=== PATIENT | male | born 1940 | race Caucasian/White ===

== ENCOUNTER 2018-05-22 14:52 | Observation (INO) | payer OTHER ==
[2018-05-22] MEDS: NACHLORIDE 0.45% 1,000 ML IV SCH (16:26)
[2018-05-22 16:38] LABS: Absolute Monocytes 0.9 K/uL (0.1-1.3); Absolute Neutrophil 3.5 K/uL (1.8-8.0); Basophils % 0.8 % (0-1.3); Eosinophils % 4.7 % (0-4.4); Hematocrit 37.4 % (39.6-49.0); Lymphocytes % 29.7 % (15.3-44.8); MCH 36.3 pg (27.0-35.0); MPV 6.2 fL (7.6-11.3); Monocytes % 13.1 % (3.3-12.3); RBC Red Blood Cell Count 3.52 M/uL (4.33-5.43)
[2018-05-22 16:43] VITALS: BMI 17.8
[2018-05-22 16:49] LABS: ALT/SGPT 26 U/L (12-78); AST/SGOT 25 U/L (15-37); Albumin 3.8 g/dL (3.4-5.0); Alkaline Phosphatase 119 U/L (45-117); BUN Blood Urea Nitrogen 23 mg/dL (7-18); Bicarbonate 30 mmol/L (21-32); Bilirubin Total 0.3 mg/dL (0.2-1.0); Glucose Level 91 mg/dL (74-106); Potassium 4.4 mmol/L (3.5-5.1); Protein, Total 7.9 g/dL (6.4-8.2); Sodium Level 141 mmol/L (136-145)
--- NOTE | 2018-05-22 18:45 | RAD REPORT ---
EXAM DESCRIPTION: CT - Abdomen Pelvis Wo Contrast - 05/22/2018 6:27 pm CLINICAL HISTORY: Abdominal pain, complaint of constipation, bloating and pressure, prior appendecto my, prior5 spinal surgery COMPARISON: None. TECHNIQUE: Axial [address] imaging of the abdomen and pelvis was performed without IV contrast. No IV contrast was given because of allergy, abnormal renal function, patient refusal or physician re quest. Oral contrast was given. All CT scans are performed using dose optimization technique as appropriate and may include automated exposure control or mA/KV adjustment according to patient size. FINDINGS: Hyperexpanded and fibrotic changes are present at the lung bases. Pericardial effusion is seen along the anterior heart border. No pleural effusion. The liver, spleen and pancreas show no suspicious findings on non-contrast imaging. Gallbladder and b iliary tree are also without suspicious finding. No hydronephrosis or suspicious renal mass. Punctate nonobstructing calculus present in the central l eft kidney. No urinary bladder abnormality identifiable. Prostate gland is small or absent. No surgic al clips are seen. Calcifications are present. No significant adrenal finding. Isodense renal masses and pyelonephritis cannot be excluded in the absence of IV contrast. Large amount of food and contrast are mixed in the stomach. No gastric wall thickening or mass. Peris talsis artifacts limit assessment of the antrum and pylorus. No dilated small bowel loops. Stool and contrast are seen throughout the colon. The colon is filled but not dilated. No appendicitis. A prima ry colon mass is not seen. No free air, free fluid or inflammatory stranding. No hernia, mass or bulky lymphadenopathy. Postsurgical changes are noted near the lumbosacral junction. Prominent bony degenerative changes are present throughout the lumbar spine. No pathologic bone process seen. There are postsurgical defects in the right ilium near the SI joint. IMPRESSION: Large stool volume is present filling but not dilating the colon. An acute colon process is not seen. No free air obstruction or other surgically emergent finding. Pericardial effusion. Full assessment is limited is the absence of IV contrast.
[2018-05-22] MEDS ORDERED: MAGNESIUM CITRATE 300 ML BOT PO SCH (20:00)
[2018-05-22] MEDS ORDERED: FELBAMATE PO SCH (21:00)
[2018-05-22] MEDS ORDERED: CARBAMAZEPINE 200 MG TAB PO SCH (21:00)
[2018-05-22] MEDS ORDERED: FLURAZEPAM HCL 15 MG PO SCH (21:00)
[2018-05-23 02:07] VITALS: O2SAT 97
[2018-05-23] MEDS: NACHLORIDE 0.45% 1,000 ML IV SCH (04:19)
[2018-05-23 05:47] VITALS: BP 136/65; TEMP 97.4
--- NOTE | 2018-05-23 19:27 | HP ---
Date of Admission: 05/22/2018 Chief Complaint: Abdominal pain. History Of Present Illness: A 77-year-old male who was taken to the emergency room for abdominal manuel n in [place], where he had a CAT scan and blood work, when he was told to have severe constipation c ausing his abdominal pain. He tried enema, polyglycol, and various measures without any relief. The patient was brought to the office again. The patient had tenderness in the umbilical area. In view of continued symptoms and the lack of response to measures he already went through, the patient was admitted for observation to see whether there is any evidence of bowel obstruction or other reason fo r continued symptoms. Past Medical History: Positive for seizure disorder, COPD. Family History: Noncontributory. Personal History: The patient continues to smoke. Home Medicines: Please refer to the chart. Allergies: TETANUS, TOXOID, AND PENICILLIN. Review of Systems: No chest pain, fever, chills, rigors. Physical Examination: General: Revealed a 77-year-old male in moderate pain. HEENT: Negative. Neck: Supple. JVD negative. Chest: Bilateral wheezes. Heart: Regular. Abdomen: Tender in the umbilical area, moderate. No guarding or rebound tenderness. Extremities: No edema. Laboratory Data: White count, Chem profile normal. CT scan of the abdomen, large amount of stools i n the colon. Assessment: 1.Abdominal pain. 2.Obstipation. 3.Chronic obstructive pulmonary disease. 4.Seizure disorder. Plan: The patient received enema as well as magnesium citrate with which he had response. However, he did not want to wait and signed AMA and left. HOA/KUNAL Voice ID: [id number]
== END 2018-05-23 07:25 | disposition left against medical advice (07) ==
LOC: 2ND 15:12
PROVIDERS: ADMIT Internal Medicine; ATTEND Internal Medicine
DX: K59.00 Constipation, unspecified (principal); G40.909 Epilepsy, unspecified, not intractable, without status epilepticus; J44.9 Chronic obstructive pulmonary disease, unspecified; Z88.0 Allergy status to penicillin; Z88.7 Allergy status to serum and vaccine
CPT/HCPCS: 36415; 74176; 80053; 85025; G0378 ×2

== ENCOUNTER 2018-05-26 09:34 | Emergency (ER) | payer OTHER ==
[2018-05-26 10:26] LABS: Absolute Lymphocytes (CBC) 1.5 K/uL (0.7-4.9); Absolute Monocytes 1.2 K/uL (0.1-1.3); Absolute Neutrophil 4.1 K/uL (1.8-8.0); Basophils % 0.7 % (0-1.3); Eosinophils % 3.1 % (0-4.4); Lymphocytes % 20.8 % (15.3-44.8); MCH 36.4 pg (27.0-35.0); MCV 104.6 fL (80-100); MPV 6.7 fL (7.6-11.3); Monocytes % 17.2 % (3.3-12.3); RBC Red Blood Cell Count 3.44 M/uL (4.33-5.43)
[2018-05-26 10:34] LABS: BUN Blood Urea Nitrogen 22 mg/dL (7-18); Bicarbonate 29 mmol/L (21-32); Glucose Level 89 mg/dL (74-106); Potassium 4.9 mmol/L (3.5-5.1); Sodium Level 136 mmol/L (136-145)
[2018-05-26] MEDS ORDERED: NA CHLORIDE 0.9% 500 ML ONE (11:13)
--- NOTE | 2018-05-26 11:31 | RAD REPORT ---
EXAM DESCRIPTION: RAD - Abdomen 1 View (KUB) - 05/26/2018 11:23 am CLINICAL HISTORY: Abdominal pain, constipation COMPARISON: CT imaging May 22 FINDINGS: Air and stool are present throughout the colon. Stool volume is moderate and does appear t o be slightly diminished when compared to the May 22 CT study. Areas seen within nondilated sma ll bowel loops. No acute obstruction finding suspected. No free air or pneumatosis. No suspicious calcifications. Bones are osteopenic. Hip joint degenerative changes are present. No acute bony pelvic process. SI flaco int degenerative changes are present. Sacral ala are too obscured to allow assessment. Scoliosis rods are in place in the lower thoracic and upper lumbar spine. Patient has advanced disc and endplate de generative change L2-S1. IMPRESSION: Moderate stool volume appearing diminished compared to May 22 CT imaging. No obstruction, free air or emergent finding.
--- NOTE | 2018-05-26 14:17 | RAD REPORT ---
EXAM DESCRIPTION: MRI - Lumbar Spine Wo Con - 05/26/2018 1:57 pm CLINICAL HISTORY: Back pain, right lower extremity weakness, history of fall, history of remote back surgery 1979 COMPARISON: CT imaging May 22 TECHNIQUE: Sagittal T1-weighted, T2-weighted and T2-STIR weighted sequences were obtained. Axial T1 -weighted and heavily T2-weighted sequenceswere obtained through the lumbar disc levels. FINDINGS: T11 body shows approximately 20% wedge compression with concavity to the superior endplate . Within the central aspect of the body there is fracture change present. Fatty marrow signal pattern is present indicating chronicity of this finding. T12 body is normal in height with no acute marrow finding. Marrow degenerative changes are present throughout the lumbar vertebrae L1-S1. Hypointense T 1 and hyperintense T2 signal is present in the superior aspect of the L2 body abutting the endplate. Finding is most consistent with active marrow edema degenerative change. Pathologic or fracture relat ed edema is not suspected. A similar less extensive pattern is seen in the L3 and L4 bodies abutting the L3-4 disc space. No aggressive marrow pattern. No paraspinal soft tissue masses. Patient has prominent anterior disc bulge and endplate spurring changes L1-L4 with anterior disc bulging L4-5 and L5-S1. Tip of the conus is obscured due to metallic artifact at the L1 level from the scoliosis hardware jud t is in place. T12-L1 level: No significant findings. L1-2 level: Disc is thinned and desiccated with significant endplate degenerative change. There is a large protrusion of disc material across the central canal and to a lesser degree into each exit fora men. Large endplate spurs are present. Central spinal stenosis to 6 mm is present. Moderate left fora stepan encroachment is present. Right foramen is too obscured by metal artifact for assessment. Facet degenerative changes are present partially obscured by the metallic field artifact. L2-3 level: Disc is thinned and desiccated with significant endplate degenerative change. There is sl ight retrolisthesis of L2. Disc bulge and endplate spurring changes combine with ligamentous thickeni ng to cause central spinal stenosis to 7 mm. Prominent bilateral foraminal encroachment present from disc bulge and endplate spurring. L3-4 level: Disc is thinned and desiccated with prominent degenerative endplate changes. Slight retro listhesis of L3 present. Disc bulge, endplate spurring and posterior ligamentous thickening combine f or significant central spinal stenosis down to 6 mm. Advanced bony foraminal encroachment changes are present right greater than left. L4-5 level: Disc is desiccated with relatively mild loss in height. Disc bulge and endplate spurring changes are present. Ligamentous thickening is present along with left-sided facet hypertrophy. Moder ate right foraminal stenosis is present. There is mass effect on the posterior left thecal sac from t he degenerative change. Central canal stenosis to 09-2009 mm is present. Significant left foraminal s tenosis is present. L5-S1 level: Disc is thinned and desiccated. Disc bulge and endplate spurring changes are present. Ca nal is 10 mm in the midline. Prominent bilateral foraminal encroachment from disc bulge and bony hype rtrophy. IMPRESSION: Advanced degenerative change involves the entire lumbar spine. Significant central spina l stenosis is present at L1-2, L2-3 and L3-4. Borderline or mild central spinal stenosis present at L4-5 and L5-S1. Multilevel significant foraminal stenosis changes from disc bulge and uncovertebral joint hypertrophy . Findings are detailed at each level in the body of the report. Advanced degenerative change throughout the lumbar vertebrae with active marrow degenerative change a butting the disc levels at L1-2 and at all 3-4. Old fracture changes of the T11 body.
--- NOTE | 2018-05-26 14:32 | EDPHYS ---
Physician Documentation [facility] Name: Gary De Leon Age: 77 yrs Sex: Male : 1940 Arrival Date: 05/26/2018 Time: 09:35 Bed 17 Private MD: ED Physician Vern Vera HPI: 05/26 10:23 This 77 yrs old Male presents to ER via EMS with complaints of Back Pain, R rn leg weakness. 10:23 The patient presents with pain that is acute, with no known mechanism of injury. The rn symptoms are located in the low back. Onset: The symptoms/episode began/occurred yesterday. The pain radiates to the right leg. Associated signs and symptoms: Pertinent positives: constipation, weakness, Pertinent negatives: hematuria, incontinence, urinary retention. Modifying factors: The patient symptoms are alleviated by nothing, the patient symptoms are aggravated by nothing. The patient has not experienced similar symptoms in the past. The patient has been recently seen by a physician:. REports just admitted to hospital for constipation, told "was backed up", but no blockage, reports admitted and got barium and 9 enemas, got only liquid stool out, no vomiting, states abd not as bloated but now having lower back pain and right leg weakness, noticed it today when going to coffee shop, feels like right leg is giving out. No trauma. States back pain mild. . Historical: - Allergies: 09:42 Tetanus Vaccines and Toxoid; 09:42 PENICILLINS; - Home Meds: 09:42 felbamate oral oral [Active]; Carbamazepine Oral [Active]; Flurazepam Oral [Active]; - PMHx: 09:42 Seizures; polio; Emphysema; - PSHx: 09:42 back surgery; hj - Immunization history:: Adult Immunizations up to date. - Social history:: Smoking status: Patient uses tobacco products, smokes two packs cigarettes per day. Patient/guardian denies using alcohol. - Ebola Screening: : Patient negative for fever greater than or equal to 101.5 degrees Fahrenheit, and additional compatible Ebola Virus Disease symptoms Patient denies exposure to infectious person Patient denies travel to an Ebola-affected area in the 21 days before illness onset. - Family history:: not pertinent. - Hospitalizations: : The patient was recently seen at [facility]. ROS: 10:23 Constitutional: Negative for fever, chills, and weight loss, Eyes: Negative for injury, rn pain, redness, and discharge, Cardiovascular: Negative for chest pain, palpitations, and edema, Respiratory: Negative for shortness of breath, cough, wheezing, and pleuritic chest pain, Abdomen/GI: + constipation Back: + low back pain MS/Extremity: Negative for injury and deformity, Skin: Negative for injury, rash, and discoloration, Neuro: Negative for headache, numbness, tingling, and seizure. Exam: 10:23 Constitutional: This is a well developed, well nourished patient who is awake, alert, rn and in no acute distress. Sitting in bed with legs crossed, appears comfortable Head/Face: Normocephalic, atraumatic. Eyes: Pupils equal round and reactive to light, extra-ocular motions intact. Lids and lashes normal. Conjunctiva and sclera are non-icteric and not injected. Cornea within normal limits. Periorbital areas with no swelling, redness, or edema. ENT: dry MM Cardiovascular: Regular rate and rhythm with a normal S1 and S2. No gallops, murmurs, or rubs. Normal PMI, no JVD. No pulse deficits. Respiratory: Lungs have equal breath sounds bilaterally, clear to auscultation and percussion. No rales, rhonchi or wheezes noted. No increased work of breathing, no retractions or nasal flaring. Abdomen/GI: Soft, non-tender, with normal bowel sounds. No distension or tympany. No guarding or rebound. No evidence of tenderness throughout. Back: No spinal tenderness. No costovertebral tenderness. Full range of motion. MS/ Extremity: Pulses equal, no cyanosis. Neurovascular intact. Neuro: Awake and alert, GCS 15, oriented to person, place, time, and situation. Cranial nerves II-XII grossly intact. Motor strength 5/5 in all extremities. Sensory grossly intact. Vital Signs: 09:44 BP 129 / 61; Pulse 66; Resp 18; Temp 98.3(O); Pulse Ox 99% on R/A; Weight 48.53 kg; hj Height 5 ft. 9 in. (175.26 cm); Pain 4/10; 11:37 BP 135 / 57; Pulse 64; Resp 18; Pulse Ox 99% on R/A; hj 12:16 BP 115 / 78; Pulse 65; Resp 18; Pulse Ox 100% on R/A; hj 12:50 BP 135 / 65; Pulse 68; Resp 18; Pulse Ox 100% on R/A; hj 14:18 BP 116 / 79; Pulse 69; Resp 18; Pulse Ox 100% on R/A; hj 09:44 Body Mass Index 15.80 (48.53 kg, 175.26 cm) MDM: 09:46 Patient medically screened. rn 14:28 Differential diagnosis: chronic back pain, Fatigue Myeloma Neoplasm Osteoarthritis rn ruptured disc, spinal injury, sprain, vertebral fracture. Data reviewed: vital signs, nurses notes, lab test result(s), radiologic studies, MRI, and as a result, I will discharge patient. Counseling: I had a detailed discussion with the patient and/or guardian regarding: the historical points, exam findings, and any diagnostic results supporting the discharge/admit diagnosis, lab results, radiology results, the need for outpatient follow up, to return to the emergency department if symptoms worsen or persist or if there are any questions or concerns that arise at home. Response to treatment: the patient's symptoms have mildly improved after treatment, and as a result, I will discharge patient. Special discussion: I discussed with the patient/guardian in detail that at this point there is no indication for admission to the hospital. It is understood, however, that if the symptoms persist or worsen the patient needs to return immediately for re-evaluation. Based on the history and exam findings, there is no indication for further emergent testing or inpatient evaluation. I discussed with the patient/guardian the need to see the back specialist for further evaluation of the symptoms. I discussed with the patient/guardian the need to see the primary care provider for further evaluation of the symptoms. ED course: Pt improved mildly, symptoms still intermittent, MRI shows multi-level disease with spinal canal stenosis, nothing acute, will dc home with steroids, muscle relaxer, and spine f/u, nothing to indicate need for emergent surgery, would need if symptoms worsen or become constant. . 05/26 10: Order name: CBC with Diff; Complete Time: 11:00 rn 05/26 10: Order name: Basic Metabolic Panel; Complete Time: 11:00 rn 05/26 10: Order name: IV Start; Complete Time: : rn 05/26 10:03 Order name: MRI Lumbar Spine wo Con; Complete Time: 14:20 rn 05/26 10:03 Order name: XRCACHORRO SULTANA; Complete Time: 12:21 rn Administered Medications: 11:00 Drug: NS 0.9% 500 ml Route: IV; Rate: bolus; Site: right antecubital; hj 12:15 Follow up: IV Status: Completed infusion; IV Intake: 500ml hj Disposition: 05/26/18 14:32 Discharged to Home. Impression: Spinal stenosis, lumbar region, Radiculopathy, lumbar region, Constipation. - Condition is Stable. - Discharge Instructions: Constipation, Adult, Lumbosacral Radiculopathy. - Prescriptions for Medrol (Darrick) 4 mg Oral Tablets, Dose Pack - take 1 tablet by ORAL route as directed - follow package instructions; 1 packet. Cyclobenzaprine 5 mg Oral Tablet - take 1 tablet by ORAL route 3 times per day As needed; 15 tablet. - Medication Reconciliation Form, Thank You Letter, Antibiotic Education, Prescription Opioid Use form. - Follow up: Private Physician; When: As needed; Reason: Recheck today's complaints, Re-evaluation by your physician. - Problem is new. - Symptoms have improved. Signatures: Dispatcher [employer] EDMS Vern Vera MD MD rn Joaquin, Henry, RN RN hj Corrections: (The following items were deleted from the chart) 14:32 14:32 05/26/2018 14:32 Discharged to Home. Impression: Spinal stenosis, lumbar region; rn Radiculopathy, lumbar region. Condition is Stable. Forms are Medication Reconciliation Form, Thank You Letter, Antibiotic Education, Prescription Opioid Use. Follow up: Private Physician; When: As needed; Reason: Recheck today's complaints, Re-evaluation by your physician. Problem is new. Symptoms have improved. rn 14:44 14:32 05/26/2018 14:32 Discharged to Home. Impression: Spinal stenosis, lumbar region; hj Radiculopathy, lumbar region; Constipation. Condition is Stable. Forms are Medication Reconciliation Form, Thank You Letter, Antibiotic Education, Prescription Opioid Use. Follow up: Private Physician; When: As needed; Reason: Recheck today's complaints, Re-evaluation by your physician. Problem is new. Symptoms have improved. rn
--- NOTE | 2018-05-26 14:32 | ER ---
Nurse's Notes [facility] Name: Gary De Leon Age: 77 yrs Sex: Male : 1940 Arrival Date: 05/26/2018 Time: 09:35 Bed 17 Private MD: Diagnosis: Spinal stenosis, lumbar region;Radiculopathy, lumbar region;Constipation Presentation: 05/26 09:36 Presenting complaint: EMS states: pt called EMS from parking lot of Dr. Villa, PCP, hj complaining of R leg weakness and back pain; hx of polio, seizure and empysema; BP- 120/80; O2 sat- 98%; afebrile;. Transition of care: patient was received from another setting of care (ambulatory primary care physician practice). Onset of symptoms was May 26, 2018. Risk Assessment: Do you want to hurt yourself or someone else? Patient reports no desire to harm self or others. Initial Sepsis Screen: Does the patient meet any 2 criteria? No. Patient's initial sepsis screen is negative. Does the patient have a suspected source of infection? No. Patient's initial sepsis screen is negative. Care prior to arrival: None. 09:36 Method Of Arrival: EMS: [facility] 09:36 Acuity: MAGDALENO 3 hj Triage Assessment: 09:42 General: Appears in no apparent distress. uncomfortable, Behavior is calm, cooperative, hj appropriate for age. Pain: Complains of pain in back and right leg. EENT: No signs and/or symptoms were reported regarding the EENT system. Neuro: Level of Consciousness is awake, alert, obeys commands, Oriented to person, place, time, situation. Cardiovascular: Capillary refill < 3 seconds Patient's skin is warm and dry. Respiratory: Airway is patent Respiratory effort is even, unlabored, Respiratory pattern is regular, symmetrical. GI: No signs and/or symptoms were reported involving the gastrointestinal system. : No signs and/or symptoms were reported regarding the genitourinary system. Derm: No signs and/or symptoms reported regarding the dermatologic system. Musculoskeletal: Range of motion: intact in all extremities, Reports weakness in right leg pain in back. Historical: - Allergies: 09:42 Tetanus Vaccines and Toxoid; hj 09:42 PENICILLINS; hj - Home Meds: 09:42 felbamate oral oral [Active]; Carbamazepine Oral [Active]; Flurazepam Oral [Active]; hj - PMHx: 09:42 Seizures; polio; Emphysema; hj - PSHx: 09:42 back surgery; hj - Immunization history:: Adult Immunizations up to date. - Social history:: Smoking status: Patient uses tobacco products, smokes two packs cigarettes per day. Patient/guardian denies using alcohol. - Ebola Screening: : Patient negative for fever greater than or equal to 101.5 degrees Fahrenheit, and additional compatible Ebola Virus Disease symptoms Patient denies exposure to infectious person Patient denies travel to an Ebola-affected area in the 21 days before illness onset. - Family history:: not pertinent. - Hospitalizations: : The patient was recently seen at [facility]. Screenin:44 Abuse screen: Denies threats or abuse. Denies injuries from another. Nutritional hj screening: No deficits noted. Tuberculosis screening: No symptoms or risk factors identified. Fall Risk Secondary diagnosis (15 points) polio. Assessment: 09:45 Reassessment: see triage for assessment; states "i was a day before yesterday for colon hj blockage". 10:45 Reassessment: Patient and/or family updated on plan of care and expected duration. Pain hj level reassessed. Patient is alert, oriented x 3, equal unlabored respirations, skin warm/dry/pink. wheeled to XRAY;. 11:36 Reassessment: Patient and/or family updated on plan of care and expected duration. Pain hj level reassessed. Patient is alert, oriented x 3, equal unlabored respirations, skin warm/dry/pink. wheeld back from XRAY;. 12:16 Reassessment: Patient and/or family updated on plan of care and expected duration. Pain hj level reassessed. Patient is alert, oriented x 3, equal unlabored respirations, skin warm/dry/pink. awaiting MRI;. 12:50 Reassessment: Patient and/or family updated on plan of care and expected duration. Pain hj level reassessed. Patient is alert, oriented x 3, equal unlabored respirations, skin warm/dry/pink. awaiting results;. 13:09 Reassessment: Patient and/or family updated on plan of care and expected duration. Pain hj level reassessed. Patient is alert, oriented x 3, equal unlabored respirations, skin warm/dry/pink. called MRI; states, pt will be picked up for test in 20 mins;. 13:28 Reassessment: Patient and/or family updated on plan of care and expected duration. Pain hj level reassessed. Patient is alert, oriented x 3, equal unlabored respirations, skin warm/dry/pink. wheeled to MRI;. 14:10 Reassessment: back in room;. hj Vital Signs: 09:44 BP 129 / 61; Pulse 66; Resp 18; Temp 98.3(O); Pulse Ox 99% on R/A; Weight 48.53 kg; hj Height 5 ft. 9 in. (175.26 cm); Pain 4/10; 11:37 BP 135 / 57; Pulse 64; Resp 18; Pulse Ox 99% on R/A; hj 12:16 BP 115 / 78; Pulse 65; Resp 18; Pulse Ox 100% on R/A; hj 12:50 BP 135 / 65; Pulse 68; Resp 18; Pulse Ox 100% on R/A; hj 14:18 BP 116 / 79; Pulse 69; Resp 18; Pulse Ox 100% on R/A; hj 09:44 Body Mass Index 15.80 (48.53 kg, 175.26 cm) hj ED Course: 09:35 Patient arrived in ED. hj 09:38 Triage completed. hj 09:44 Arm band placed on right wrist. hj 09:45 Patient has correct armband on for positive identification. Bed in low position. Call hj light in reach. Side rails up X2. 09:46 Vern Vera MD is Attending Physician. rn 10:05 Jam Gutierrez RN is Primary Nurse. hj 10:14 Initial lab(s) drawn, by wy, sent to lab. Inserted saline lock: 22 gauge in right dh3 antecubital area, using aseptic technique. Blood collected. 11:23 X-ray completed. Patient tolerated procedure well. Patient moved back from radiology. mh1 11:23 XRAY KUB In Process Unspecified. EDMS 13:34 Patient moved to MRI via wheelchair. em2 13:41 MRI Lumbar Spine wo Con In Process Unspecified. EDMS 13:56 MRI completed. Patient tolerated well. Patient moved back from MRI. em2 14:43 No provider procedures requiring assistance completed. IV discontinued, intact, hj bleeding controlled, No redness/swelling at site. Pressure dressing applied. Administered Medications: 11:00 Drug: NS 0.9% 500 ml Route: IV; Rate: bolus; Site: right antecubital; 12:15 Follow up: IV Status: Completed infusion; IV Intake: 500ml hj Intake: 12:15 IV: 500ml; Total: 500ml. Outcome: 14:32 Discharge ordered by . rn 14:43 Discharged to home via wheelchair. 14:43 Condition: stable 14:43 Instructed on discharge instructions, follow up and referral plans. medication usage, Demonstrated understanding of instructions, follow-up care, medications, Prescriptions given X 2. 14:44 Patient left the ED. Signatures: Dispatcher [employer] EDRuma Rodríguez 1 Vern Vera MD MD rn Montes, Enrique [facility] Jam Gutierrez RN RN hj Herrera, Chela 3
[2018-05-26 14:51] VITALS: TEMP 98.3
[2018-05-26 14:53] VITALS: O2SAT 100
[2018-05-26 14:55] VITALS: BP 116/79
== END 2018-05-26 14:44 | disposition home or self-care (01) ==
LOC: ER 09:34
DX: M48.061 Spinal stenosis, lumbar region without neurogenic claudication (principal); M54.16 Radiculopathy, lumbar region; K59.00 Constipation, unspecified; F17.210 Nicotine dependence, cigarettes, uncomplicated; Z88.0 Allergy status to penicillin; Z88.7 Allergy status to serum and vaccine
CPT/HCPCS: 36415; 72148; 74018; 80048; 85025; 96360; 99284

== ENCOUNTER 2019-01-02 20:32 | Inpatient (IN) | payer OTHER ==
--- OUTSIDE RECORDS SUMMARY | 2019-01-02 20:35 | XMS REPORT ---
:1940 [facility] Address [address] [place] [address] Dr. Mcdonald. [address] [place] [id number] Care Team Providers Name Role Phone Unavailable Unavailable Unavailable Problems This patient has no known problems. Allergies, Adverse Reactions, Alerts This patient has no known allergies or adverse reactions. Medications This patient has no known medications.
[2019-01-02] MEDS ORDERED: NA CHLORIDE 0.9% 1,000 ML ONE (21:28)
[2019-01-02 21:58] LABS: Absolute Lymphocytes (CBC) 1.4 K/uL (0.7-4.9); Absolute Monocytes 1.7 K/uL (0.1-1.3); Absolute Neutrophil 7.5 K/uL (1.8-8.0); Basophils % 0.6 % (0-1.3); Eosinophils % 2.8 % (0-4.4); Hematocrit 28.5 % (39.6-49.0); Lymphocytes % 13.2 % (15.3-44.8); MPV 7.4 fL (7.6-11.3); Monocytes % 15.2 % (3.3-12.3); RBC Red Blood Cell Count 2.85 M/uL (4.33-5.43)
[2019-01-02 22:37] LABS: ALT/SGPT 21 U/L (12-78); AST/SGOT 23 U/L (15-37); Albumin 3.2 g/dL (3.4-5.0); Alkaline Phosphatase 107 U/L (45-117); BUN Blood Urea Nitrogen 28 mg/dL (7-18); Bicarbonate 25 mmol/L (21-32); Bilirubin Direct 0.1 mg/dL (0-0.2); Bilirubin Total 0.4 mg/dL (0.2-1.0); Glucose Level 104 mg/dL (74-106); Magnesium 2.2 mg/dL (1.8-2.4); NT PRO-BNP 887 pg/mL (<450); Phosphorus 3.9 mg/dL (2.5-4.9); Potassium 4.5 mmol/L (3.5-5.1); Protein, Total 7.5 g/dL (6.4-8.2); Sodium Level 139 mmol/L (136-145); Troponin (Emerg Dept Use Only) < 0.02 ng/mL (0.0-0.045)
[2019-01-02 23:06] LABS: Blood Morphology Comment NOT SEEN (NOT SEEN); Platelet Estimate ADEQ
--- NOTE | 2019-01-02 23:13 | EDPHYS ---
Physician Documentation [facility] Name: Gary De Leon Age: 78 yrs Sex: Male : 1940 Arrival Date: 01/02/2019 Time: 20:34 Bed 27 Private MD: Troy Villa R ED Physician David Alvarez HPI: 01/02 21:33 This 78 yrs old Male presents to ER via Wheelchair with complaints of snw Nausea/Vomiting, Doesn't Feel Right. 21:33 The patient presents to the emergency department with nausea, that is mild. Onset: The snw symptoms/episode began/occurred suddenly, pt had a seizure yesterday for the first time in 25 years, went to [facility], labs were normal, chest x-ray not outside normal so pt was discharged. Family states last week pt was driving and ambulatory. Pt with severe weakness, slurred speech, disheveled. Pt appears as if bedridden for many years.. Possible causes: unknown. The symptoms are aggravated by nothing. Associated signs and symptoms: Pertinent positives: anorexia, fatigue, weakness, altered mental status. Severity of symptoms: At their worst the symptoms were moderate severe in the emergency department the symptoms are unchanged. The patient has not experienced similar symptoms in the past. The patient has been recently seen by a physician: TRICIA yesterday. Historical: - Allergies: 20:41 PENICILLINS; ed1 20:41 Tetanus Vaccines and Toxoid; ed1 - Home Meds: 20:41 Tegretol 200 mg Oral tab [Active]; ed1 - PMHx: 20:41 Emphysema; Polio; Seizures; ed1 - PSHx: 20:41 back surgery; ed1 - Immunization history:: Adult Immunizations unknown. - Social history:: Smoking status: Patient/guardian denies using tobacco. - Ebola Screening: : Patient negative for fever greater than or equal to 101.5 degrees Fahrenheit, and additional compatible Ebola Virus Disease symptoms Patient denies exposure to infectious person Patient denies travel to an Ebola-affected area in the 21 days before illness onset No symptoms or risks identified at this time. ROS: 21:27 Eyes: Negative for injury, pain, redness, and discharge. snw 21:27 Neck: Negative for injury, pain, and swelling, Cardiovascular: Negative for chest pain, palpitations, and edema. 21:27 Back: Negative for injury and pain, : Negative for injury, bleeding, discharge, and swelling, MS/Extremity: Negative for injury and deformity, Skin: Negative for injury, rash, and discoloration. 21:27 Constitutional: Positive for body aches, malaise, poor PO intake. 21:27 ENT: Positive for sinus congestion. 21:27 Respiratory: Positive for cough. 21:27 Abdomen/GI: Positive for nausea. 21:27 Neuro: Positive for altered mental status, gait disturbance, speech changes, weakness. Exam: 21:14 Head/Face: Normocephalic, atraumatic. Eyes: Pupils equal round and reactive to light, snw extra-ocular motions intact. Lids and lashes normal. Conjunctiva and sclera are non-icteric and not injected. Cornea within normal limits. Periorbital areas with no swelling, redness, or edema. 21:14 Neck: Trachea midline, no thyromegaly or masses palpated, and no cervical lymphadenopathy. Supple, full range of motion without nuchal rigidity, or vertebral point tenderness. No Meningismus. Chest/axilla: Normal chest wall appearance and motion. Nontender with no deformity. No lesions are appreciated. Cardiovascular: Regular rate and rhythm with a normal S1 and S2. No gallops, murmurs, or rubs. Normal PMI, no JVD. No pulse deficits. 21:14 Abdomen/GI: Soft, non-tender, with normal bowel sounds. No distension or tympany. No guarding or rebound. No evidence of tenderness throughout. Back: No spinal tenderness. No costovertebral tenderness. Full range of motion. 21:14 Constitutional: The patient appears awake, frail, lethargic, listless, pale, unkempt. 21:14 ENT: Nose: is normal, Mouth: Oral mucosa: dry, drooling, that is mild, Posterior pharynx: Airway: patent, Voice: weak/slurred. 21:14 Respiratory: the patient does not display signs of respiratory distress, Breath sounds: bronchial sounds, + upper airway congestion. 21:14 Skin: Appearance: Color: pale. 21:14 Neuro: Orientation: is normal, Mentation: is normal, Memory: is normal, Sensation: is normal, seizure activity, is not displayed by the patient, right foot drop, bilateral arms tense and extended. Vital Signs: 20:41 BP 134 / 96; Pulse 84; Resp 23; Temp 97.4(TE); Pulse Ox 98% on R/A; Weight 54.43 kg; ed1 21:15 BP 131 / 83; Pulse 79; Resp 21; Temp 98(O); Pulse Ox 98% on R/A; ca1 22:00 BP 115 / 67; Pulse 77; Resp 19 S; Temp 98(O); Pulse Ox 99% on R/A; ca1 22:58 BP 125 / 56; Pulse 79; Resp 26; Temp 98.1(O); Pulse Ox 100% on R/A; ca1 23:08 BP 153 / 96; Pulse 84; Resp 18; Temp 98; Pulse Ox 97% on R/A; mg2 05/11 00:37 BP 104 / 81; Pulse 82; Resp 18; Temp 98.5; Pulse Ox 100% on R/A; Pain 0/10; mg2 MDM: 01/02 20:54 Patient medically screened. [facility] 21:13 Data reviewed: vital signs, nurses notes. Data interpreted: Pulse oximetry: on room air snw is 98 %. Interpretation: normal. Physician consultation: Troy Villa MD was called at 21:13, was contacted at 21:13, regarding consult, patient's condition, need to evaluate the patient as soon as possible, Dr. Villa asked to call again post work up and plan will be discussed. 22:01 Transition of care: After a detail discussion of the patient's case, care is snw transferred to David Alvarez MD. 01/02 20:44 Order name: Basic Metabolic Panel ed1 01/02 20:44 Order name: CBC with Diff ed1 01/02 20:44 Order name: LFT's ed1 01/02 20:44 Order name: Magnesium ed1 01/02 20:44 Order name: NT PRO-BNP ed1 01/02 20:44 Order name: PT-INR; Complete Time: 23:31 ed1 01/02 20:44 Order name: Troponin (emerg Dept Use Only); Complete Time: 22:54 ed1 01/02 20:45 Order name: Basic Metabolic Panel; Complete Time: 22:54 EDMS 01/02 20:45 Order name: CBC with Automated Diff; Complete Time: 23:31 EDMS 01/02 20:45 Order name: Liver (Hepatic) Function; Complete Time: 22:54 EDUT 01/02 20:45 Order name: Magnesium; Complete Time: 22:54 EDUT 01/02 20:45 Order name: NT PRO-BNP; Complete Time: 22:54 EDUT 01/02 21:11 Order name: Phosphorus [facility] 01/02 20:44 Order name: XRAY Chest (1 view) ed 01/02 21:11 Order name: Procalcitonin [facility] 01/02 21:11 Order name: Lactate [facility] 01/02 21:11 Order name: Blood Culture* [facility] 01/02 21:11 Order name: CT Head Brain wo Cont [facility] 01/02 21:11 Order name: AMMONIA; Complete Time: 22:54 [facility] 01/02 21:12 Order name: Procalcitonin; Complete Time: 00:27 EDUT 01/02 21:12 Order name: Lactate; Complete Time: 22:54 EDUT 01/02 21:12 Order name: Blood Culture [facility] 01/02 21:55 Order name: Phosphorus; Complete Time: 22:54 EDUT 01/02 22:00 Order name: Manual Differential; Complete Time: 23:31 EDUT 01/02 22:13 Order name: Carbamazepine (Tegretol) Level; Complete Time: 22:54 EDUT 01/02 22:59 Order name: CT Chest Abdomen Pelvis W/O Contrast: no oral no iv [facility] 01/02 20:44 Order name: EKG; Complete Time: 20:46 ed 01/02 20:44 Order name: Cardiac monitoring; Complete Time: 20:45 ed 01/02 20:44 Order name: EKG - Nurse/Tech; Complete Time: 20:46 ed1 01/02 20:44 Order name: IV Saline Lock; Complete Time: 21:20 ed1 01/02 20:44 Order name: Labs collected and sent; Complete Time: 22:04 ed 01/02 20:44 Order name: O2 Per Protocol; Complete Time: 20:46 ed 01/02 20:44 Order name: O2 Sat Monitoring; Complete Time: 20:46 ed 01/02 23:01 Order name: Woodall; Complete Time: 00:33 carmen 01/02 23:22 Order name: CONS Physician Consult EDMS Administered Medications: 21:18 Drug: NS 0.9% 1000 ml Route: IV; Rate: 125 ml/hr; Site: right antecubital; mg2 01/03 00:57 Follow up: IV Status: Order to discontinue infusion mg2 01/02 23:07 Drug: NS 0.9% 1000 ml Route: IV; Rate: 1 bolus; Site: right antecubital; mg2 01/03 00:33 Follow up: Response: No adverse reaction; IV Status: Completed infusion ca1 00:33 Follow up: Response: No adverse reaction; IV Status: Completed infusion mg2 00:32 Drug: Charcoal Suspension 50 grams {Note: patient drank 50 ml.} Route: PO; mg2 00:33 Follow up: Response: No adverse reaction mg2 Disposition: 01/02 23:01 Co-signature as Attending Physician, Davdi Alvarez MD I agree with the assessment and carmen plan of care. Disposition: 01/02/19 23:12 Hospitalization ordered by Troy Villa for Inpatient Admission. Preliminary diagnosis are Volume depletion, Altered mental status, unspecified, Weakness, Poisoning by iminostilbenes, undetermined, Poisoning by iminostilbenes, accidental (unintentional), Anemia, unspecified, Pericardial effusion (noninflammatory). - Bed requested for Intensive Care Unit. - Status is Inpatient Admission. mg2 - Condition is Serious. - Problem is new. - Symptoms have improved. UTI on Admission? No Signatures: Dispatcher [employer] EDUT Ruma Barnes RN RN mw Anderson, Corey, MD MD cha Therrien, Shelly, TOOL AND CUTTER GRINDER-C TOOL AND CUTTER GRINDER-Csnw Maame Osorio RN RN ed1 Cricket Zamorano RN RN mg2 Magalie Akers RN ca1 Corrections: (The following items were deleted from the chart) 21:55 21:12 Phosphorus ordered. EDMS EDMS 22:13 20:55 CARBAMAZEPINE (TEGRETOL)+C.LAB.BRZ ordered. EDMS EDMS 23:11 21:12 Chest For PE Angio+CT.RAD.BRZ ordered. EDMS EDMS 23:12 21:12 Abdomen Pelvis W Con+CT.RAD.BRZ ordered. EDUT EDMS 23:26 23:12 Hospitalization Ordered by Troy Villa MD for Inpatient Admission. Preliminary diagnosis is Volume depletion; Altered mental status, unspecified; Weakness; Poisoning by iminostilbenes, undetermined; Poisoning by iminostilbenes, accidental (unintentional); Anemia, unspecified. Bed requested for Telemetry/MedSurg (Inpatient). Status is Inpatient Admission. Condition is Serious. Problem is new. Symptoms have improved. UTI on Admission? No. carmen 01/03 00:30 01/02 23:26 01/02/2019 23:12 Hospitalization Ordered by Troy Villa MD for Inpatient carmen Admission. Preliminary diagnosis is Volume depletion; Altered mental status, unspecified; Weakness; Poisoning by iminostilbenes, undetermined; Poisoning by iminostilbenes, accidental (unintentional); Anemia, unspecified. Bed requested for Intensive Care Unit. Status is Inpatient Admission. Condition is Serious. Problem is new. Symptoms have improved. UTI on Admission? No. mw 01/03 01:02 00:30 01/02/2019 23:12 Hospitalization Ordered by Troy Villa MD for Inpatient mg2 Admission. Preliminary diagnosis is Volume depletion; Altered mental status, unspecified; Weakness; Poisoning by iminostilbenes, undetermined; Poisoning by iminostilbenes, accidental (unintentional); Anemia, unspecified; Pericardial effusion (noninflammatory). Bed requested for Intensive Care Unit. Status is Inpatient Admission. Condition is Serious. Problem is new. Symptoms have improved. UTI on Admission? No. carmen
--- NOTE | 2019-01-02 23:13 | ER ---
Nurse's Notes [facility] Name: Gary De Leon Age: 78 yrs Sex: Male : 1940 Arrival Date: 01/02/2019 Time: 20:34 Bed 27 Private MD: Troy Villa R Diagnosis: Volume depletion;Altered mental status, unspecified;Weakness;Poisoning by iminostilbenes, undetermined;Poisoning by iminostilbenes, accidental (unintentional);Anemia, unspecified;Pericardial effusion (noninflammatory) Presentation: 01/02 20:38 Presenting complaint: Child states: He went to [facility] yesterday because he ed1 had a seizure because he stopped taking his Tegretol. They started him back on it today but he has been lethargic. He has thrown up too. Transition of care: patient was not received from another setting of care. Onset of symptoms was January 02, 2019. Risk Assessment: Do you want to hurt yourself or someone else? Patient reports no desire to harm self or others. Initial Sepsis Screen: Does the patient meet any 2 criteria? No. Patient's initial sepsis screen is negative. Does the patient have a suspected source of infection? No. Patient's initial sepsis screen is negative. Care prior to arrival: None. 20:38 Method Of Arrival: Wheelchair ed1 20:38 Acuity: MAGDALENO 2 ed1 Triage Assessment: 20:41 General: Appears uncomfortable, slender, Behavior is calm, cooperative. Pain: Unable to ed1 use pain scale. Does not appear to understand pain scale. GI: Reports vomiting. Historical: - Allergies: 20:41 PENICILLINS; ed1 20:41 Tetanus Vaccines and Toxoid; ed1 - Home Meds: 20:41 Tegretol 200 mg Oral tab [Active]; ed1 - PMHx: 20:41 Emphysema; Polio; Seizures; ed1 - PSHx: 20:41 back surgery; ed1 - Immunization history:: Adult Immunizations unknown. - Social history:: Smoking status: Patient/guardian denies using tobacco. - Ebola Screening: : Patient negative for fever greater than or equal to 101.5 degrees Fahrenheit, and additional compatible Ebola Virus Disease symptoms Patient denies exposure to infectious person Patient denies travel to an Ebola-affected area in the days before illness onset No symptoms or risks identified at this time. Screenin:07 Abuse screen: Denies threats or abuse. Denies injuries from another. Nutritional ca1 screening: No deficits noted. Tuberculosis screening: No symptoms or risk factors identified. Fall Risk IV access (20 points). Assessment: 21:00 General: Appears in no apparent distress. uncomfortable, ill, slender, unkempt, ca1 Behavior is drowsy. General: Family reports last seen sitting up and able to do ADL was on Saturday last week. Lives alone by himself. Saturday a family member came to visit him and found him on bed, refuses to eat, to weak to get up by himself. Family take turns in taking care of him. Yesterday went to [facility] ER and was discharged. Pt able to speak clearly yesterday but is still weak. Today, pt was flat, does not respond appropriately and incoherent. Neuro: Level of Consciousness is awake, Oriented to person, Radiation Control Health Physicist are equal bilaterally Weakness Speech is slurred, Facial symmetry appears normal. Cardiovascular: Heart tones S1 S2 present Capillary refill < 3 seconds Patient's skin is warm and dry. Respiratory: Airway is patent Respiratory effort is even, unlabored, Respiratory pattern is regular, symmetrical, Breath sounds are clear bilaterally. Parent/caregiver reports the patient having cough that is productive, since few days ago. GI: Abdomen is flat, non-distended, Bowel sounds present X 4 quads. Abd is soft and non tender X 4 quads. Parent/caregiver reports the patient having vomiting. : No deficits noted. No signs and/or symptoms were reported regarding the genitourinary system. EENT: No deficits noted. No signs and/or symptoms were reported regarding the EENT system. Derm: Skin is intact, is fragile, with poor turgor Skin is pink, warm \T\ dry. Musculoskeletal: Circulation, motion, and sensation intact. Capillary refill < 3 seconds. 21:30 Reassessment: Copy of Advance Directive attached to chart. ca1 22:00 Reassessment: Patient appears in no apparent distress at this time. No changes from ca1 previously documented assessment. Dr. Alvarez at bedside. 22:57 Reassessment: Patient appears in no apparent distress at this time. No changes from ca1 previously documented assessment. Family at bedside. 22:57 Reassessment: Spoke with Gibson from Poison Control and explained that pt had Tegretol fc level of 19.9. Pt to have Tegretol level q 4 hrs. Also do EKG q 1 hr if noted changes. OK to give Charcoal 50 gram PO if pt is awake enough to drink. Monitor for DEVULCANIZER LOADER changes, resp depression, seizure activity, arrhythmias, hypothermia, ST, Ataxia, delirium and N/V. Dr Alvarez notified. 23:10 Reassessment: Patient appears in no apparent distress at this time. Pt to CT scan. ca1 Vital Signs: 20:41 BP 134 / 96; Pulse 84; Resp 23; Temp 97.4(TE); Pulse Ox 98% on R/A; Weight 54.43 kg; ed1 21:15 BP 131 / 83; Pulse 79; Resp 21; Temp 98(O); Pulse Ox 98% on R/A; ca1 22:00 BP 115 / 67; Pulse 77; Resp 19 S; Temp 98(O); Pulse Ox 99% on R/A; ca1 22:58 BP 125 / 56; Pulse 79; Resp 26; Temp 98.1(O); Pulse Ox 100% on R/A; ca1 23:08 BP 153 / 96; Pulse 84; Resp 18; Temp 98; Pulse Ox 97% on R/A; mg2 05/ 00:37 BP 104 / 81; Pulse 82; Resp 18; Temp 98.5; Pulse Ox 100% on R/A; Pain 0/10; mg2 ED Course: 01/02 20:20 EKG done, by ED staff, reviewed by David Alvarez MD. Inserted saline lock: 20 gauge in jb4 left forearm, using aseptic technique. 20:34 Patient arrived in ED. am2 20:34 Troy Villa MD is Private Physician. am2 20:39 Triage completed. ed1 20:41 Arm band placed on. ed1 20:53 Lory Stewart FNP-C [facility]. snw 20:53 David Alvarez MD is Attending Physician. snw 20:55 Inserted saline lock: 20 gauge in right antecubital area, using aseptic technique. ca1 21:03 Magalie Akers, ARCELIA is Primary Nurse. ca1 21:07 Patient has correct armband on for positive identification. Placed in gown. Bed in low ca1 position. Call light in reach. Side rails up X2. Adult w/ patient. Seizure precautions initiated. groundwater monitoring technician on. Pulse ox on. NIBP on. Warm blanket given. 21:07 No provider procedures requiring assistance completed. ca1 21:13 Radiology exam delayed due to lab results not completed at this time. (BUN/Creatinine) vm2 IV insertion attempt and/or patient not having appropriate IV at this time. 21:18 XRAY Chest (1 view) In Process Unspecified. EDMS 22:05 Radiology exam delayed due to lab results not completed at this time. (BUN/Creatinine). vm2 22:21 Radiology exam delayed due to lab results not completed at this time. (BUN/Creatinine). vm2 22:43 Radiology exam delayed due to lab results not completed at this time. (BUN/Creatinine). vm2 22:45 Notified ED physician of a critical lab result(s). Tegretol level of 19.9. fc 22:45 First set of blood cultures drawn by dc. ca1 23:05 Troy Villa MD is Hospitalizing Provider. [facility] 01/03 00:00 CT Head Brain wo Cont In Process Unspecified. EDMS 00:01 CT Chest Abdomen Pelvis W/O Contrast: no oral no iv In Process Unspecified. EDMS 00:02 Second set of blood cultures drawn by me. ca1 00:31 Woodall cath inserted, using sterile technique, 18 Fr., by dc, balloon inflated, to ca1 gravity drainage, urine specimen collected. returned bk urine. Patient tolerated well. 00:32 Patient admitted, IV remains in place. ca1 Administered Medications: 01/02 21:18 Drug: NS 0.9% 1000 ml Route: IV; Rate: 125 ml/hr; Site: right antecubital; mg2 01/03 00:57 Follow up: IV Status: Order to discontinue infusion mg2 01/02 23:07 Drug: NS 0.9% 1000 ml Route: IV; Rate: 1 bolus; Site: right antecubital; mg2 01/03 00:33 Follow up: Response: No adverse reaction; IV Status: Completed infusion ca1 00:33 Follow up: Response: No adverse reaction; IV Status: Completed infusion mg2 00:32 Drug: Charcoal Suspension 50 grams {Note: patient drank 50 ml.} Route: PO; mg2 00:33 Follow up: Response: No adverse reaction mg2 Intake: 01:00 IV: 1000ml (IV Fluid); Total: 1000ml. mg2 Output: 01:00 Urine: 400ml; Total: 400ml. mg2 Outcome: 01/02 23:12 Decision to Hospitalize by Provider. carmen 01/03 01:00 Admitted to ICU accompanied by nurse, accompanied by tech, via stretcher, room 3, on mg2 monitor, with chart, Report called to ARCELIA Barr Condition: stable Instructed on the need for admit. 01:02 Patient left the ED. mg2 Signatures: Dispatcher [employer] EDDavid Dumas MD MD cha Therrien, Shelly, SENIOR INFORMATION SECURITY CONSULTANT-C SENIOR INFORMATION SECURITY CONSULTANT-Csnw Bri Jasso, RN RN fc Maame sOorio RN RN ed1 Jian Ayala RN RN jb4 Alexandria Mendiola am2 Sheba Campos 2 Cricket Zamorano RN RN mg2 Magalie Akers RN RN ca1 Corrections: (The following items were deleted from the chart) 01/02 22:55 21:00 General: Family reports last seen sitting up and able to do ADL was on Saturday ca1 last week. Lives alone by himself. Saturday a family member came to visit him and found him on bed, refuses to eat, to weak to get up by himself. Family take turns in taking care of him. Yesterday went to [facility] ER and was discharged. Pt able to speak clearly yesterday but is still weak. Today, pt was flat, does not respond appropriately and unable to articulate properly. . ca1 22:57 22:00 Reassessment: Patient appears in no apparent distress at this time. No changes ca1 from previously documented assessment. Family at bedside. ca1 22:59 22:00 BP 125 / 56; Pulse 79bpm; Resp 26bpm; Pulse Ox 100% RA; Temp 98.1F Oral; ca1 ca1
[2019-01-02 23:18] LABS: Protime INR 1.21
[2019-01-02] MEDS ORDERED: ACTIVATED CHARCOAL 25 GM/120 ML TUBE ONE (23:37)
[2019-01-03] MEDS ORDERED: ONDANSETRON 4 MG/2 ML VIAL IV PRN (01:04)
[2019-01-03 02:18] VITALS: BMI 18.0
[2019-01-03 02:21] LABS: Urine Blood TRACE (NEG); Urine Glucose NEGATIVE (NEG); Urine Protein NEGATIVE (NEG); Urine pH 5.5 (5.0-7.0)
[2019-01-03] MEDS: NA CHLORIDE 0.9% 1,000 ML IV SCH ×3 (02:40→19:35)
[2019-01-03 05:58] LABS: BUN Blood Urea Nitrogen 21 mg/dL (7-18); Bicarbonate 26 mmol/L (21-32); Glucose Level 88 mg/dL (74-106); Potassium 4.1 mmol/L (3.5-5.1); Sodium Level 144 mmol/L (136-145)
[2019-01-03 06:04] LABS: Absolute Lymphocytes (CBC) 1.4 K/uL (0.7-4.9); Absolute Monocytes 1.2 K/uL (0.1-1.3); Basophils % 0.6 % (0-1.3); Eosinophils % 2.7 % (0-4.4); Hematocrit 31.5 % (39.6-49.0); Lymphocytes % 17.5 % (15.3-44.8); MPV 7.3 fL (7.6-11.3); Monocytes % 15.6 % (3.3-12.3); RBC Red Blood Cell Count 3.12 M/uL (4.33-5.43)
[2019-01-03] MEDS: ALBUTEROL 2.5 MG/3 ML NEB SOL NEB SCH ×3 (07:52→19:25)
[2019-01-03] MEDS: FAMOTIDINE 20 MG/2 ML VIAL IV SCH ×2 (08:03→20:15)
--- NOTE | 2019-01-03 09:21 | EKG ---
Test Date: 2019-01-02 Test Time: 23:10:58 [employer]: MARLINET MEASUREMENT RESULTS: Intervals: Rate: 78 TN: 158 QRSD: 58 QT: 368 QTc: 419 [place]: P: 77 TN: 158 QRS: 49 T: 82 INTERPRETIVE STATEMENTS: Normal sinus rhythm Normal ECG No previous ECG available for comparison Electronically Signed On 01-03-19 09:20:49 CDT by Ruddy Finch
--- NOTE | 2019-01-03 11:23 | RAD REPORT ---
EXAM DESCRIPTION: RAD - Chest Single View - 01/02/2019 9:18 pm CLINICAL HISTORY: SOB Chest pain. COMPARISON: Abdomen 1 View (KUB) dated 05/26/2018 FINDINGS: Portable technique limits examination quality. Emphysematous changes are present throughout the lungs. The heart is normal in size. Hardware is pres ent in the thoracic spine.Old right posterior rib fractures. IMPRESSION: Prominent COPD.
[2019-01-03] MEDS ORDERED: FLUMAZENIL 0.1 MG/ML (5 mL VIAL) IV ONE (13:20)
--- NOTE | 2019-01-03 13:40 | CON ---
Date of Consultation: 01/03/2019 Reason For Consultation: Pericardial effusion. History Of Present Illness: Mr. De Leon is a 78-year-old white male with history of polio, COPD, and seizure disorder. Apparently has had some compliance issue with his Tegretol, was seen at [facility] in [place] [facility] and was given Tegretol and Keppra for seizure disorder. He came back to [facility] emergency room here with altered mental status, elevated Tegretol level at 16.6. Part of his work up apparently including a CT scan of the chest, which showed a pericardial effusion. He does not hav e what appeared to be an abnormality on the EKG, his EKG is normal. There are no cardiac symptoms re ported. An echocardiogram is pending. He has no previous cardiac history. Allergies: TO TETANUS AND PENICILLIN. Review of Systems: Negative. Social History: Negative. Family History: Negative. Medications: At home include Tegretol. Physical Examination: General: Mr. De Leon was somnolent, but alert and oriented. He wakes up easy. The history was obtained mostly from his son. Vital Signs: His vital signs were stable. He was afebrile. He was in a sinus rhythm. HEENT: Negative. Neck: Supple with no bruit. Chest: Clear. Cardiac: Revealed a regular rhythm and rate. No murmurs, gallops or rubs. Abdomen: Benign. Extremities: Revealed no clubbing, cyanosis, or edema. Diagnostic Data: EKG was normal. BNP was 887. CT of the chest final report is pending. Impression And Plan: Incidental finding of the pericardial effusion on CT scan of the chest. He tran s not appear to be in tamponade, especially by clinical examination or by EKG. He does not have elec trical alternans. An echocardiogram is pending, we will order stat, we will see what that shows prio r to making any final decision. TEO/KUNAL Voice ID: [id number] Report ID: [id number]
--- NOTE | 2019-01-03 13:55 | HP ---
Date of Admission: 01/02/2019 Chief Complaint: Confusional state, poor intake. History Of Present Illness: A 78-year-old male was brought to the emergency room with history of alt ered mentation, poor oral intake, and dehydration. The patient had evaluation done. He was found to have high Tegretol level, which probably explained his mental status. The patient is admitted. The re is no history of fresh injury. The patient is known to have seizures. However, according to the family, he stopped taking his medication, and he had a seizure. He was taken to [facility] where he was given extra Tegretol as per notes. The patient did not have any further seizures. Past Medical History: Positive for COPD, seizure disorder. Family History: Noncontributory. Personal History: He is allergic to tetanus toxoid. Home Medicines: Tegretol, felbamate. Review of Systems: No history of fever, chills, rigors. Physical Examination: General: Revealed a 78-year-old male, intermittently confused. Vital Signs: Blood pressure recorded shows systolic blood pressure was 94. HEENT: No evidence of head injury. Neck: Supple. JVD negative. Chest: Scattered wheezes bilaterally. Heart: Regular. Abdomen: Soft. Extremities: No edema. Laboratory Data: White count normal. Chem profile; BUN 21, creatinine normal. Troponin normal. Am monia level normal. Procalcitonin normal. Assessment: 1.Tegretol toxicity. 2.Chronic obstructive pulmonary disease. 3.Known seizure disorder. Plan: The patient is having serial Tegretol levels. However, he will be started on felbamate to pre vent seizures. The patient has COPD. He will receive breathing treatments. HOA/KUNAL Voice ID: [id number]
--- NOTE | 2019-01-03 13:58 | P.CNS ---
Date of Consult: 01/03/19 Reason for Consult: Tegretol toxicity Chief Complaint: AMS History of Present Illness: A 78-year-old white male with history of polio, COPD, and seizure disorder. pt presented for N&V and AMS of 2 days duration last week had seizure, went to [facility] ER, given Keppra and extra dose of tegretol Since then pt is lethargic as per daughter pt also had home prescription for benzo in ER tegretol level was ~20, bicarb 26 No chest pain, palpitation, haedache or urinary symptoms Allergies Tetanus Vaccines and Toxoid [Tetanus Vaccines & Toxoid] Allergy (Intermediate, Verified 06/03/13 12:07) Itching pcn Allergy (Intermediate, Uncoded 06/03/13 12:06) Rash Home Medications: Carbamazepine [Tegretol] 200 mg PO BID 05/22/18 Felbamate [Felbatol] 1,200 mg PO TID 01/03/19 - Past Medical/Surgical History Diabetic: No -: Seizure-last 01/02 -: EPILEPSY -: emphysema -: polio -: TOBACCO ABUSE -: r wrist sx-due to accident many years ago. -: BACK SX-2 METAL RODS -: appendectomy - Family History Father Medical History: Lung disease Notes: COPD Mother History Unknown: Yes Medical History: Hypertension - Social History Smoking Status: Current every day smoker Alcohol use: No CD- Drugs: No Caffeine use: Yes Place of Residence: Home Physical Examination Temp Pulse Resp BP Pulse Ox 97.8 F 68 17 129/55 L 100 01/03/19 04:00 01/03/19 12:00 01/03/19 12:00 01/03/19 12:00 01/03/19 11:00 General: Alert, Confused HEENT: Atraumatic Neck: Supple Respiratory: Clear to auscultation bilaterally Cardiovascular: No edema, Normal pulses, Regular rate/rhythm, Normal S1 S2 Gastrointestinal: Normal bowel sounds Laboratory Data (last 24 hrs) 01/02/19 22:45: PT 14.2 H, INR 1.21 01/02/19 21:43: WBC 11.0 H, Hgb 9.8 L, Hct 28.5 L, Plt Count 266 01/02/19 21:43: Sodium 139, Potassium 4.5, BUN 28 H, Creatinine 0.92, Glucose 104, Phosphorus 3.9, Magnesium 2.2, Total Bilirubin 0.4, AST 23, ALT 21, Alkaline Phosphatase 107 01/02/19 21:11: Phosphorus Cancelled - Problems (1) Tegretol toxicity Current Visit: Yes Status: Acute Conclusions/Impression: AMS possible due to Tegretol toxicity received charcoal in ER level WNl now , Pt more alert will give flumazenil will send for Utox LFT Wnl Cont IVF COPD stable pericardial effusion as per cardiology
[2019-01-03 14:46] LABS: Barbiturates NEGATIVE (NEGATIVE); Benzodiazepines POSITIVE (NEGATIVE); Cocaine NEGATIVE (NEGATIVE); METHAMPHETAM NEGATIVE (NEGATIVE); Methadone NEGATIVE (NEGATIVE); Opiates NEGATIVE (NEGATIVE); Phencyclidine NEGATIVE (NEGATIVE); THC Cannibis NEGATIVE (NEGATIVE)
[2019-01-03 17:20] LABS: Arterial Blood Carboxyhemoglob 1.5 % (0-1.5); Blood O2 Saturation 94.8 % (92-98.5)
[2019-01-03] MEDS: FELBAMATE PO SCH (20:14)
[2019-01-03] MEDS: ACETAMINOPHEN 500 MG TAB PO PRN (21:23)
[2019-01-04] MEDS: ALBUTEROL 2.5 MG/3 ML NEB SOL NEB SCH ×4 (01:50→19:15)
[2019-01-04] MEDS: NA CHLORIDE 0.9% 1,000 ML IV SCH ×3 (02:00→10:58)
[2019-01-04] MEDS: FELBAMATE PO SCH ×2 (08:12→20:00)
[2019-01-04] MEDS: FAMOTIDINE 20 MG/2 ML VIAL IV SCH (08:14)
--- NOTE | 2019-01-04 08:49 | EKG ---
Test Date: 2019-01-02 Test Time: 20:50:01 [employer]oe Stock Associate: AG3 MEASUREMENT RESULTS: Intervals: Rate: 88 NC: 146 QRSD: 56 QT: 324 QTc: 392 [place]: P: 74 NC: 146 QRS: 31 T: 76 INTERPRETIVE STATEMENTS: Normal sinus rhythm Normal ECG No previous ECG available for comparison Electronically Signed On 01-04-19 08:47:29 CDT by Ruddy Finch
--- NOTE | 2019-01-04 11:59 | P.PN ---
Subjective Date of Service: 01/04/19 Chief Complaint: AMS Subjective: Improving pt with AMS , hx of seziure tegretol toxicity, Utox +ve for benzo Improving today will reduce IVF rate Physical Examination - Vital Signs Temperature: 99.1 F Blood Pressure: 120/96 Pulse: 73 Respirations: 28 Pulse Ox (%): 97 - Physical Exam General: Alert, In no apparent distress, Other (thin ) Neck: Supple, Without JVD or thyroid abnormality Respiratory: Clear to auscultation bilaterally, Normal air movement Cardiovascular: No edema, Normal pulses, Regular rate/rhythm, Normal S1 S2, No gallops, No rubs, No murmurs Gastrointestinal: Normal bowel sounds, Soft and benign Assessment And Plan - Current Problems (Diagnosis) (1) Tegretol toxicity Current Visit: Yes Status: Acute - Plan AMS improving possible due to Tegretol and benzo toxicity level WNl now , Pt more alert Cont IVF COPD stable pericardial effusion as per cardiology
[2019-01-04] MEDS: ACETAMINOPHEN 500 MG TAB PO PRN (16:03)
[2019-01-05] MEDS: NA CHLORIDE 0.9% 1,000 ML IV SCH ×3 (00:54→18:38)
[2019-01-05] MEDS: ALBUTEROL 2.5 MG/3 ML NEB SOL NEB SCH ×4 (01:10→20:00)
--- NOTE | 2019-01-05 02:09 | PN ---
The patient is more alert and less confused today. I spoke to the family regarding his post-discharg e plan. According to family, he has been overdosing on medications and he has been eating poorly. Oksana hernandez is considering putting in [facility] according to one of the family members. The patient, kings vasquez, wants to go home. The patient's Tegretol level is coming down. The patient will be re-evalua leticia tomorrow morning. Social Service consult has been done. HOA/KUNAL Voice ID: [id number] Report ID: [id number]
--- NOTE | 2019-01-05 08:07 | ECHO ---
HEIGHT: 5 ft 6 in WEIGHT: 111 lb 14.4 oz DATE OF STUDY: 01/03/[address]: David Alvarez MD 2-DIMENSIONAL: YES M.MODE: YES DOPPLER: YES COLOR FLOW: YES TDS: NO PORTABLE: NO DEFINITY: NO BUBBLE STUDY: NO DIAGNOSIS: PERICARDIAL EFFUSION CARDIAC HISTORY: CATHERIZATION: NO SURGERY: NO PROSTHETIC VALVE: NO PACEMAKER: NO MEASUREMENTS (cm) DIASTOLIC (NORMALS) SYSTOLIC (NORMALS) IVSd 1.1 (0.6-1.2) LA Diam 3.3 (1.9-4.0) LVEF 72% LVIDd 4.6 (3.5-5.7) LVIDs 2.7 (2.0-3.5) %FS 41% LVPWd 1.1 (0.6-1.2) Ao Diam 3.0 (2.0-3.7) 2 DIMENSIONAL ASSESSMENT: RIGHT ATRIUM: NORMAL LEFT ATRIUM: NORMAL RIGHT VENTRICLE: NORMAL LEFT VENTRICLE: NORMAL TRICUSPID VALVE: NORMAL MITRAL VALVE: NORMAL PULMONIC VALVE: NORMAL AORTIC VALVE: NORMAL PERICARDIAL EFFUSION: NONE AORTIC ROOT: NORMAL LEFT VENTRICULAR WALL MOTION: NORMAL DOPPLER/COLOR FLOW: NORMAL COMMENTS: SMALL PERICARDIAL EFFUSION. NO SIGNS OF TAMPONADE. NO WALL MOTION ABNORMALITY. NORMAL LEFT VENTRICULAR SIZE AND FUNCTION. TECHNOLOGIST: Darlin JIMÉNEZ
[2019-01-05] MEDS: FELBAMATE PO SCH ×2 (09:00→20:35)
--- NOTE | 2019-01-05 10:53 | RAD REPORT ---
EXAM DESCRIPTION: Chest Abd Pelvis Wo Con CLINICAL HISTORY: 78 years Male Abdominal distention;Dyspnea;Cough COMPARISON: None TECHNIQUE: Images were obtained in axial, sagittal, and coronal planes. No intravenous or oral contr ast was administered. This exam was performed according to our departmental dose-optimization program which includes use of Automated Exposure Control, adjustment of the mA and/or kV according to patient size and/or use of i terative reconstruction technique. FINDINGS: CT chest: No dilatation aortic root. Moderate pericardial effusion. No pleural effusions b ilaterally. Coronary artery calcification. No adenopathy. No pneumothorax. Calcified granuloma lung f ields bilaterally. Airspace attenuation lower lobes bilaterally consistent with atelectatic change ve rsus infiltrate. Mild to moderate centrilobular emphysema. No consolidation. Spinal fixation rods pos teriorly extending from T8 to L1. Compression fractures T9, T10, and T11 vertebral bodies. No signifi cant posterior convexity. Additional compression fractures T2, T4, and T5 vertebral bodies. Small hia martha hernia. Dorsal kyphosis. CT abdomen and pelvis: No abnormality involving the liver, gallbladder or adrenal glands bilaterally. Calcified granuloma involving the spleen. Atrophic pancreas. No obstructing renal calcifications elmo aterally. Punctate nonobstructing calcifications left kidney. No hydronephrosis bilaterally. Moderate ly distended bladder. Prosthetic calcification. Appendix not well identified however no secondary sig ns for appendicitis. No bowel obstruction, perforation, or inflammation. Calcification abdominal aort a with no significant dilatation seen. No adenopathy or abnormal fluid collections. Intervertebral di sc space narrowing multiple levels lumbar spine. Associated marked anterior osteophyte formation as w ell as multilevel vacuum disc phenomenon. IMPRESSION: Moderate pericardial effusion. COPD. Atelectatic change versus infiltrate lower lobes bi laterally. No acute intra-abdominal abnormality. Electronically signed by: Mouna Guadalupe MD 01/03/2019 12:13 AM CDT Due to temporary technical issues with the PACS/Fluency reporting system, reports are being signed by the in house radiologist as a courtesy to ensure prompt reporting. The interpreting radiologist is f ully responsible for the content of the report.
--- NOTE | 2019-01-05 10:56 | RAD REPORT ---
EXAM DESCRIPTION: Head Brain Wo Cont CLINICAL HISTORY: 78 years Male, DECLINING STATE TECHNIQUE: 5 mm axial images were obtained along with 3 mm reformatted coronal and sagittal images. This exam was performed according to our departmental dose-optimization program, which includes autom ated exposure control, adjustment of the mA and/or kV according to patient size and/or use of iterati ve reconstruction technique. COMPARISON: None. FINDINGS: No acute abnormal extracerebral fluid collections are demonstrated. The cortical sulci, ventricles, and cisterns are moderately prominent consistent with global volume l oss. There is mild chronic bilateral periventricular microangiopathic white matter changes. There are no areas of altered attenuation identified to suggest acute hemorrhage, infarction, or mass lesion. The visualized portions of the paranasal sinuses and mastoid air cells are clear. IMPRESSION: 1. No acute intracranial abnormality. 2. Moderately severe global volume loss. 3. Mild chronic microangiopathic white matter changes. Electronically signed by: Paul Rivera MD 01/03/2019 12:05 AM CDT Due to temporary technical issues with the PACS/Fluency reporting system, reports are being signed by the in house radiologist as a courtesy to ensure prompt reporting. The interpreting radiologist is f ully responsible for the content of the report.
[2019-01-05] MEDS: ACETAMINOPHEN 500 MG TAB PO PRN (12:14)
[2019-01-05] MEDS: ENSURE ENLIVE 237 ML CAN PO SCH (20:36)
--- NOTE | 2019-01-05 23:51 | PN ---
The patient is still lethargic and confused. He is not able to take enough calories by mouth. I wro te orders for initial bedside. The patient has DNR. The patient's family also do not want any artif icial access for feeding purpose. HOA/KUNAL Voice ID: [id number] Report ID: [id number]
[2019-01-06] MEDS: ALBUTEROL 2.5 MG/3 ML NEB SOL NEB SCH ×4 (02:00→20:00)
--- NOTE | 2019-01-06 04:28 | PN ---
Date of Progress Note: 01/05/2019 Chief Complaint: Altered mental status. Subjective: The patient presented to the hospital because of generalized weakness. The patient became lethargic, confused, and he was found to have Tegretol toxicity. The patient is on IV fluids for volume depletion and prerenal azotemia. The patient previously was diagnosed with pericardial effusion. Review of Systems: The patient is complaining of some generalized weakness. He is bedbound. He has left upper extremity swelling. Patient not in acute distress Eyes EOMI Neck supplle , no JVD CV S1, S2 RRR Lungs clear bilaterally Abdomen: soft , no bruits Extremity ; no cyanosis Lab Work: Sodium 144, potassium 4.1, chloride 111, CO2 26, BUN 21, creatinine 0.77, calcium 7.9. Impression And Plan: 1. Prerenal azotemia. BUN is improving from 28 to 21. Creatinine level remains at baseline. There is some improvement with IV fluids. Continue hydration. 2. Altered mental status. Ammonia level is within normal limits. There is no evidence of hepatorenal syndrome at this point. 3. The patient has pericardial effusion and further workup will be done by manual arts teacher. 4. Tegretol toxicity. Monitor level. Adjust treatment accordingly. 5. Hypertension. Blood pressure is controlled. The patient had some episodes of hypotension. Consider midodrine for blood pressure control. Currently, the patient is on IV fluids. Continue fluids. SANTA/KUNAL Voice ID: [id number] Report ID: [id number] MARY ANNE
[2019-01-06] MEDS: ENSURE ENLIVE 237 ML CAN PO SCH ×2 (09:39→20:54)
[2019-01-06] MEDS: CARBAMAZEPINE 200 MG TAB PO SCH ×2 (09:39→20:53)
[2019-01-06] MEDS: FELBAMATE PO SCH ×2 (10:17→20:53)
[2019-01-06] MEDS: NA CHLORIDE 0.9% 1,000 ML IV SCH (12:36)
--- NOTE | 2019-01-06 20:10 | PN ---
Date of Progress Note: 01/06/2019 Subjective: The patient more awake today. Physical Examination: Vital Signs: Blood pressure 101/41, pulse of 85, afebrile. The patient had good urine output of 110 0. Chest: Clear to auscultation. Heart: S1 and S2. Systolic murmur. Abdomen: Soft and nontender. Extremities: No edema. Laboratory Data: H and H .5. Sodium 144, potassium 4.1, bicarb 26, BUN 21, creatinine 0.7, [place] cium 7.9. Assessment And Plan: 1.Acute kidney injury secondary to prerenal, recovered, resolved. 2.Altered mental status secondary to encephalopathy hepatorenal, resolved. 3.Tegretol toxicity, status post charcoal resolve. 4.Hypertension, controlled, optimal. Continue current treatment. The patient cleared from the eric l standpoint for discharge planning. RIGO Voice ID: [id number] Report ID: [id number]
--- NOTE | 2019-01-06 23:37 | PN ---
The patient is doing slightly better. His Depakote level has come back to normal. He is started on maintenance dose of Tegretol. The patient has been depressed. He will be started on Paxil in additi on to other medication. The social Service is in the process of planning discharge. TERRY Voice ID: [id number] Report ID: [id number]
[2019-01-07] MEDS: ALBUTEROL 2.5 MG/3 ML NEB SOL NEB SCH ×4 (02:00→20:00)
[2019-01-07] MEDS: ACETAMINOPHEN 500 MG TAB PO PRN (04:35)
[2019-01-07] MEDS: NA CHLORIDE 0.9% 1,000 ML IV SCH ×2 (07:13→22:16)
[2019-01-07] MEDS: FELBAMATE PO SCH ×2 (09:00→20:18)
[2019-01-07] MEDS: ENSURE ENLIVE 237 ML CAN PO SCH ×2 (09:06→20:18)
[2019-01-07] MEDS: CARBAMAZEPINE 200 MG TAB PO SCH ×2 (09:08→20:19)
[2019-01-08] MEDS: ALBUTEROL 2.5 MG/3 ML NEB SOL NEB SCH ×4 (02:00→19:25)
--- NOTE | 2019-01-08 02:06 | PN ---
The patient still eating poorly, and I spoke to the family regarding the PEG tube; however, they are reluctant because of his previous commitment not to have any artificial measures to prolong life. Th e patient will be continued on the physical therapy and hopefully penitentiary placement will be succ essful and he will be transferred. HOA/KUNAL Voice ID: [id number] Report ID: [id number]
--- NOTE | 2019-01-08 03:38 | PN ---
Date of Progress Note: 01/07/2019 Subjective: The patient was admitted with Tegretol toxicity. The patient was treated with charcoal and hydration, he is starting to recover. The patient still is occasionally with altered mental stat us. Physical Examination: General: When I saw the patient, the patient was lying in the chair. Vital Signs: Blood pressure 143/75, pulse of 101. Afebrile. The patient had urine output of 950. Chest: Clear to auscultation. Heart: S1 and S2, regular. Abdomen: Soft, nontender. Extremities: No edema. Laboratory Data: H and H .5. Sodium of 144, potassium 4.1, bicarb 26, BUN 21, creatinine 0.7, calcium 7.9. Current Medications: The patient on is include: 1.Albuterol. 2.Carbamazepine. 3.Ensure. 4.Normal saline at 60/hour. Assessment And Plan: 1.Acute kidney injury secondary to prerenal, recovered, resolved. I am going to go ahead and discon tinue IV fluid. We will continue to monitor the patient. 2.Hypertension controlled, optimal. 3.Tegretol toxicity, resolved. 4.Deconditioning. Continue physical therapy and occupational therapy. Continue supportive treatmen chriss DALY/KUNAL Voice ID: [id number] Report ID: [id number]
[2019-01-08] MEDS: CARBAMAZEPINE 200 MG TAB PO SCH (08:24)
[2019-01-08] MEDS: FELBAMATE PO SCH ×2 (08:30→21:00)
[2019-01-08] MEDS: ENSURE ENLIVE 237 ML CAN PO SCH ×2 (08:30→21:21)
--- NOTE | 2019-01-08 12:44 | P.PN ---
Subjective Date of Service: 01/08/19 Chief Complaint: AMS Subjective: Worsening pt with AMS , hx of seziure tegretol toxicity, Utox +ve for benzo today mentally unchanged poor oral intake family and pt refusing PEG daughter is considering Hospice Physical Examination - Vital Signs Temperature: 98.2 F Blood Pressure: 127/58 Pulse: 98 Respirations: 19 Pulse Ox (%): 99 - Physical Exam General: Alert, Oriented x1 Neck: Supple, Without JVD or thyroid abnormality Respiratory: Clear to auscultation bilaterally, Normal air movement Cardiovascular: No edema, Regular rate/rhythm, Normal S1 S2, Abnormal S3, No rubs, No murmurs Gastrointestinal: Normal bowel sounds, Soft and benign Musculoskeletal: No swelling Integumentary: No rashes - Studies Microbiology Data (last 24 hrs): 01/02/19 23:59 Blood - Blood Aerobic Blood Culture - Final No growth in 5 days. 01/02/19 23:59 Blood - Blood Anaerobic Blood Culture - Final No growth in 5 days. 01/02/19 22:45 Blood - Blood Aerobic Blood Culture - Final No growth in 5 days. 01/02/19 22:45 Blood - Blood Anaerobic Blood Culture - Final No growth in 5 days. Assessment And Plan - Current Problems (Diagnosis) (1) Tegretol toxicity Current Visit: Yes Status: Acute - Plan Tegretol and benzo toxicity recived charcoal and flumazinel poor oral intake family and pt refusing PEG COPD stable pericardial effusion as per cardiology
[2019-01-08] MEDS: ACETAMINOPHEN 500 MG TAB PO PRN (17:00)
[2019-01-08] MEDS ORDERED: NA CHLORIDE 0.9% 1,000 ML ONE (17:49)
[2019-01-08] MEDS: NA CHLORIDE 0.9% 1,000 ML IV SCH (18:07)
[2019-01-08] MEDS: ENOXAPARIN 30 MG/0.3 ML SQ SCH (18:09)
--- NOTE | 2019-01-08 18:17 | RAD REPORT ---
EXAM DESCRIPTION: RAD - Chest Single View - 01/08/2019 5:55 pm CLINICAL HISTORY: pneumonia? Chest pain. COMPARISON: Chest Single View dated 01/02/2019; Abdomen 1 View (KUB) dated 05/26/2018; Chest Abd Pelvi s Wo Con dated 01/02/2019 FINDINGS: Portable technique limits examination quality. Emphysematous changes are present throughout the lungs. Mild increased linear opacities are seen in b oth lung bases which may be related to aspiration or pneumonia. The heart is normal in size.
[2019-01-08 18:27] LABS: ALT/SGPT 27 U/L (12-78); AST/SGOT 49 U/L (15-37); Albumin 2.4 g/dL (3.4-5.0); Alkaline Phosphatase 83 U/L (45-117); Amylase Level 17 U/L (25-115); BUN Blood Urea Nitrogen 19 mg/dL (7-18); Bicarbonate 24 mmol/L (21-32); Bilirubin Direct 0.2 mg/dL (0-0.2); Bilirubin Total 0.4 mg/dL (0.2-1.0); Glucose Level 95 mg/dL (74-106); Potassium 4.2 mmol/L (3.5-5.1); Protein, Total 6.9 g/dL (6.4-8.2); Sodium Level 139 mmol/L (136-145)
[2019-01-08 18:51] LABS: Urine Appearance CLEAR; Urine Blood 3+ (NEG); Urine Color YELLOW; Urine Glucose NEGATIVE (NEG); Urine Protein 1+ (NEG)
[2019-01-08 18:52] LABS: Urine Bilirubin 1+ (NEG)
[2019-01-08 18:53] LABS: Urine Microscopic Reflex ORDER UMIC
[2019-01-08 19:08] LABS: Urine Bacteria <20 /HPF (NONE SEEN); Urine Culture Reflex Order NOT NEEDED; Urine Mucus 1+ /HPF (NONE SEEN)
[2019-01-08 19:13] LABS: Absolute Lymphocytes (CBC) 0.5 K/uL (0.7-4.9); Absolute Monocytes 1.1 K/uL (0.1-1.3); Absolute Neutrophil 7.2 K/uL (1.8-8.0); Basophils % 0.4 % (0-1.3); Eosinophils % 0.3 % (0-4.4); Hematocrit 27.5 % (39.6-49.0); Lymphocytes % 5.7 % (15.3-44.8); MPV 6.7 fL (7.6-11.3); RBC Red Blood Cell Count 2.74 M/uL (4.33-5.43)
[2019-01-08] MEDS: Levofloxacin500mg IV 500 MG/100 ML BAG IV SCH (21:20)
--- NOTE | 2019-01-08 23:03 | PN ---
The patient was about to be discharged to intermediate; however, he developed a fever of 101. The ana dayna's discharge will be on hold. He will have a CBC, chest x-ray, and urine culture to see where t he source of infection is. HOA/KUNAL Voice ID: [id number] Report ID: [id number]
[2019-01-09] MEDS: ALBUTEROL 2.5 MG/3 ML NEB SOL NEB SCH ×4 (01:20→20:00)
[2019-01-09] MEDS: ACETAMINOPHEN 500 MG TAB PO PRN ×2 (05:09→23:48)
[2019-01-09] MEDS ORDERED: CARBAMAZEPINE 200 MG TAB PO SCH (09:00)
[2019-01-09] MEDS: ENOXAPARIN 30 MG/0.3 ML SQ SCH (09:13)
[2019-01-09] MEDS: ENSURE ENLIVE 237 ML CAN PO SCH ×2 (09:14→20:01)
[2019-01-09] MEDS: FELBAMATE PO SCH (09:14)
[2019-01-09] MEDS: NA CHLORIDE 0.9% 1,000 ML IV SCH (10:40)
[2019-01-09] MEDS ORDERED: LACTULOSE 20 GM/30 ML UCUP PO ONE (11:46)
--- NOTE | 2019-01-09 11:49 | P.PN ---
Subjective Date of Service: 01/09/19 Chief Complaint: AMS Subjective: Worsening pt with AMS , hx of seziure tegretol toxicity, Utox +ve for benzo today mentally unchanged spiked fever yesterday , mildly elevated lactate poor oral intake , started on NS , will change to D5 NS family and pt refusing PEG daughter is considering Hospice poor prognosis Physical Examination - Vital Signs Temperature: 97 F Blood Pressure: 117/51 Pulse: 76 Respirations: 19 Pulse Ox (%): 96 - Physical Exam General: Alert, Cachectic, Mild distress HEENT: Atraumatic Neck: Supple, Without JVD or thyroid abnormality Respiratory: Clear to auscultation bilaterally, Normal air movement Cardiovascular: No edema, Regular rate/rhythm, Normal S1 S2 Gastrointestinal: Normal bowel sounds, Soft and benign Assessment And Plan - Current Problems (Diagnosis) (1) Tegretol toxicity Current Visit: Yes Status: Acute - Plan Tegretol and benzo toxicity received charcoal and flumazinel poor oral intake family and pt refusing PEG will change fluid to D5 NS COPD stable pericardial effusion as per cardiology low grade fever Septic W/u aspiration precautions on Abx Poor prognosis
[2019-01-09] MEDS: D5 0.9 NS 1,000 ML IV SCH (12:54)
[2019-01-09] MEDS: Levofloxacin500mg IV 500 MG/100 ML BAG IV SCH (19:52)
[2019-01-09] MEDS: FELBAMATE 600 MG PO SCH (20:02)
[2019-01-10] MEDS: ALBUTEROL 2.5 MG/3 ML NEB SOL NEB SCH ×4 (02:00→20:50)
--- NOTE | 2019-01-10 02:08 | PN ---
The patient is still eating poorly. The patient could not be transferred to [place] [facility] as he spike d fever. His x-ray showed aspiration pneumonia. The patient is on Levaquin. The patient will be st arted on IV fluids as he is not eating well and aspirating. HOA/KUNAL Voice ID: [id number] Report ID: [id number]
[2019-01-10] MEDS: ENSURE ENLIVE 237 ML CAN PO SCH ×2 (08:32→21:00)
[2019-01-10] MEDS: TAMSULOSIN 0.4 MG SR CAP PO SCH (08:32)
[2019-01-10] MEDS: FELBAMATE 600 MG PO SCH ×2 (08:33→21:20)
[2019-01-10] MEDS: ENOXAPARIN 30 MG/0.3 ML SQ SCH (08:33)
[2019-01-10] MEDS: CARBAMAZEPINE 200 MG TAB PO SCH (08:33)
[2019-01-10] MEDS: D5 0.9 NS 1,000 ML IV SCH ×2 (08:34→21:24)
--- NOTE | 2019-01-10 14:17 | PN ---
Date of Progress Note: 01/10/2019 Subjective: No event. The patient was admitted with acute kidney injury, Tegretol toxicity, treated , recovered. Physical Examination: Vital Signs: When I saw the patient, blood pressure of 134/64, pulse of 73. Chest: Clear to auscultation. Heart: S1, S2. Regular. Abdomen: Soft, nontender. Extremity: No edema. Laboratory Data: The patient had urine output of 730, H and H 9.5/27.5. Sodium 139, potassium 4.2, bicarb 24, BUN 19, creatinine 0.6, calcium 8.5. Current Medications: The patient on its include Levaquin 500 daily, Flomax, Lovenox, carbamazepine, Zofran, D5 normal at 60. Assessment And Plan: 1.Acute kidney injury secondary to prerenal, recovered, resolved. 2.Hypertension, controlled optimal. 3.Tegretol toxicity status post treatment, resolved. 4.Chronic obstructive pulmonary disease as by the primary. 5.Pericardial effusion as by the primary. RIGO Voice ID: [id number] Report ID: [id number]
[2019-01-10] MEDS: Levofloxacin500mg IV 500 MG/100 ML BAG IV SCH (21:20)
[2019-01-11] MEDS: ALBUTEROL 2.5 MG/3 ML NEB SOL NEB SCH ×4 (01:50→20:00)
[2019-01-11] MEDS: CARBAMAZEPINE 200 MG TAB PO SCH (08:53)
[2019-01-11] MEDS: ENSURE ENLIVE 237 ML CAN PO SCH ×2 (08:53→20:04)
[2019-01-11] MEDS: TAMSULOSIN 0.4 MG SR CAP PO SCH (08:53)
[2019-01-11] MEDS: FELBAMATE 600 MG PO SCH ×2 (08:53→20:07)
[2019-01-11] MEDS: ENOXAPARIN 30 MG/0.3 ML SQ SCH (08:53)
[2019-01-11] MEDS: D5 0.9 NS 1,000 ML IV SCH ×2 (14:00→20:08)
--- NOTE | 2019-01-11 15:50 | PN ---
Date of Progress Note: 01/11/2019 Subjective: The patient was admitted with Tegretol toxicity, acute kidney injury, recovered, resolve d. The patient depressed. Objective: Vital Signs: Blood pressure 111/53, pulse of 75, afebrile. The patient had urine output of 750. Chest: Clear to auscultation. Heart: S1, S2. Regular. Abdomen: Soft, nontender. Extremities: No edema. Laboratory Data: H and H 9.5/27.9. Sodium of 139, potassium 4.2, bicarb 24, BUN 19, creatinine 0.6, calcium 8.5. Current Medications: The patient on its include Levaquin 500 daily, Flomax, Lovenox, carbamazepine, Zofran, D5 normal at 60. Assessment And Plan: 1.Acute kidney injury secondary to prerenal, recovered, resolved. 2.Tegretol toxicity, recovered, resolved. 3.Chronic obstructive pulmonary disease, stable. 4.Pericardial effusion, as by Cardiology. 5.Poor intake. Family refused the PEG tube. We will follow up with the Primary. Continue margaret kelly MA/KUNAL Voice ID: [id number] Report ID: [id number]
--- NOTE | 2019-01-11 17:35 | PN ---
The patient is rejecting all medications. I spoke to the family members. After that, I decided to g o with the family's decision of hospice care. The patient will be treated for any treatment acceptab le to the patient and family. HOA/KUNAL Voice ID: [id number] Report ID: [id number]
[2019-01-11] MEDS: Levofloxacin500mg IV 500 MG/100 ML BAG IV SCH (20:07)
[2019-01-12] MEDS: ALBUTEROL 2.5 MG/3 ML NEB SOL NEB SCH ×3 (02:00→13:35)
[2019-01-12] MEDS: ACETAMINOPHEN 500 MG TAB PO PRN (02:01)
[2019-01-12] MEDS: D5 0.9 NS 1,000 ML IV SCH (05:03)
[2019-01-12 06:24] LABS: Albumin 2.1 g/dL (3.4-5.0); BUN Blood Urea Nitrogen 17 mg/dL (7-18); Bicarbonate 29 mmol/L (21-32); Glucose Level 105 mg/dL (74-106); Phosphorus 1.9 mg/dL (2.5-4.9); Potassium 3.2 mmol/L (3.5-5.1); Sodium Level 144 mmol/L (136-145)
[2019-01-12] MEDS: ENSURE ENLIVE 237 ML CAN PO SCH ×2 (09:00→21:00)
[2019-01-12 09:21] VITALS: O2SAT 92
[2019-01-12] MEDS: FELBAMATE 600 MG PO SCH ×2 (10:08→21:00)
[2019-01-12] MEDS: TAMSULOSIN 0.4 MG SR CAP PO SCH (10:09)
[2019-01-12] MEDS: CARBAMAZEPINE 200 MG TAB PO SCH (10:09)
[2019-01-12] MEDS: ENOXAPARIN 30 MG/0.3 ML SQ SCH (10:10)
[2019-01-12] MEDS: Levofloxacin500mg IV 500 MG/100 ML BAG IV SCH (20:07)
[2019-01-12 20:43] VITALS: BP 123/57; TEMP 97.8
[2019-01-13] MEDS ORDERED: levoFLOXacin 500 MG TAB PO SCH (09:00)
--- NOTE | 2019-01-13 20:23 | PN ---
Date of Progress Note: 01/12/2019 Chief Complaint: Acute on chronic kidney injury, prerenal azotemia. History: The patient responded to IV fluids. Renal function stabilized. The patient has history of Tegretol toxicity. He was admitted for altered mental status. Acute kidney injury improved in resp onse to IV fluids. BUN is 19, creatinine 0.6. Review of Systems: The patient is feeling better. He denies PND, orthopnea. Physical Examination: Lungs: Clear to auscultation bilaterally. Heart: S1, S2. Abdomen: Soft, benign. Extremities: No edema. Laboratory Data: Hemoglobin 9.5, WBC 8.5, hematocrit 27.9. Sodium 139, potassium 4.2, bicarbonate 2 4, BUN 19, creatinine 0.6, calcium 8.5. Impression And Plan: 1.Acute kidney injury secondary to prerenal azotemia. The patient is feeling better. He is tolerat ing p.o. intake. IV fluids on hold. The patient responded to hydration. Renal function at baseline . 2.Tegretol toxicity. The patient recovered and the Tegretol toxicity resolved. 3.Chronic obstructive pulmonary disease, stable. Continue nebulizers and continue antibiotics as ne eded. 4.Pericardial effusion as per Cardiology recommendation. 5.The patient refused placement. Continue to encourage p.o. intake. Monitor fluid balance. SANTA/KUNAL Voice ID: [id number] Report ID: [id number]
--- NOTE | 2019-01-20 15:22 | DS ---
Date of Discharge: 01/12/2019 Final Diagnoses: 1.Altered mentation secondary to Tegretol toxicity. 2.Seizure disorder. 3.Chronic obstructive pulmonary disease. 4.Depression. Hospital Course: This patient was admitted through emergency room because of altered mentation, poor oral intake. The patient after admission received IV fluids and because of high Tegretol level, he was put in ICU. The patient had no further seizures. The patient after stabilization was transferre d to floor and was started on his seizure medication and a small dose of Tegretol. The patient howev er was not eating. At 1 point, he had aspiration pneumonia. At this point, I spoke to the family an d they asked for hospice care. The patient later decided not to have any medication, feeding, or any other measures to prolong his life. Again, I had discussions with the family and after family talke d to the patient, he changed his mind. [facility] for further management and stabilization of his physical condition. Laboratory Data: Please refer to the chart. HOA/KUNAL Voice ID: [id number] Report ID: [id number]
== END 2019-01-12 21:15 | DRG 682 ==
LOC: ER 20:32 → ERHOLD 01-03 00:02 → 3RD-ICU 01-03 00:57 → 2ND 01-03 16:40
PROVIDERS: ADMIT Internal Medicine; ATTEND Internal Medicine
DX: N17.9 Acute kidney failure, unspecified (principal); J69.0 Pneumonitis due to inhalation of food and vomit; I31.3 Pericardial effusion (noninflammatory); K72.90 Hepatic failure, unspecified without coma; G40.909 Epilepsy, unspecified, not intractable, without status epilepticus; R41.82 Altered mental status, unspecified; I95.9 Hypotension, unspecified; T42.1X5A Adverse effect of iminostilbenes, initial encounter; E86.9 Volume depletion, unspecified; R79.89 Other specified abnormal findings of blood chemistry; I12.9 Hypertensive chronic kidney disease with stage 1 through stage 4 chronic kidney disease, or unspecified chronic kidney disease; N18.9 Chronic kidney disease, unspecified; J44.9 Chronic obstructive pulmonary disease, unspecified; J43.9 Emphysema, unspecified; F17.200 Nicotine dependence, unspecified, uncomplicated; T42.4X5A Adverse effect of benzodiazepines, initial encounter; F32.89 Other specified depressive episodes
CPT/HCPCS: 36415; 51702; 70450; 71045; 71250; 74176; 80048; 80053; 80069; 80076; 80156; 80307; 81003; 81015; 82140; 82150; 82248; 82805; 83605; 83735; 83880; 83930; 84100; 84145; 84484; 85025; 85610; 87040; 87086; 87088; 93005; 93306; 94640; 96360; 96361; 96365; 96367; 97110; 97116; 97163; 97530; 99285; J1650; J7030